=== PATIENT | male | born 1970 | race Two or more races ===

== ENCOUNTER 2016-08-14 10:28 | Day surgery (SDC) | payer BC ==
[~2016-08-14 10:28] MED LIST: ACETAMINOPHEN 1,000 MG/100 ML BTL IV ONE
[2016-08-14] MEDS ORDERED: CEFAZOLIN 1 Gram 1 GM/50 ML BAG IVPB ONE (13:07)
[2016-08-14] MEDS ORDERED: MIDAZOLAM HCL 2MG/2ML VIAL IV ONE (14:00)
[2016-08-14] MEDS ORDERED: BUPIVACAINE 0.25% W/EPI MPF 30ML VIAL IVP ONE (14:00)
[2016-08-14] MEDS ORDERED: FENTANYL PF 100MCG/2ML VIAL IV ONE (14:00)
[2016-08-14] MEDS ORDERED: PROPOFOL 10 MG/ML VIAL IV ONE (14:00)
--- NOTE | 2016-08-16 12:55 | Operative Note ---
DATE OF SURGERY: 08/14/2016 Surgeon: Kamaljit Owens DO PREOPERATIVE DIAGNOSIS: Abdominal wall mass. POSTOPERATIVE DIAGNOSIS: Abdominal wall mass. OPERATION: Excision of abdominal wall mass. Indication: The patient is a 45-year-old male who presented with a mass on his abdominal wall on his right lower quadrant. We did discuss excision, risks, benefits, and alternatives. Risks include bleeding, infection, recurrence. He understood this fully. PROCEDURE: Therefore, he was taken to the operating room and placed in a supine position. General anesthesia was administered per the department of anesthesia. The patient's abdomen was prepped and draped in sterile fashion. The area of the mass was anesthetized with a total of 5 mL of 0.25% Sensorcaine with epinephrine. A 3 cm incision was made. 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 This was dissected free from surrounding tissue and passed off the field. Hemodialysis was noted. The wound was closed with 3-0 and 4-0 Vicryl. He was taken to the recovery room in satisfactory condition. Final pathology pending. CC: Dr. Susan OCAMPO
== END 2016-08-14 13:05 | disposition home or self-care (01) ==
LOC: SUR 10:28
PROVIDERS: ATTEND Surgery
DX: D17.1 Benign lipomatous neoplasm of skin and subcutaneous tissue of trunk (principal)